=== PATIENT | male | born 1940 | race Caucasian/White ===

== ENCOUNTER 2020-07-24 16:39 | Observation (INO) | payer MEDICARE, OTHER, SELFPAY ==
[2020-07-24] VITALS (15 sets, daily range): BP systolic 134–160; BP diastolic 76–95; PULSE 72–100; RESP 12–24; TEMP 36–36.4; O2SAT 95–97; BMI 31.7
--- NOTE | 2020-07-24 17:28 | DI.RAD.S_ITS ---
PROCEDURE: XR CHEST 2V INDICATIONS: exertional shortness of breath for 1 month TECHNIQUE: 2 views of the chest were acquired. COMPARISON: [facility], CT, CT HEAD/BRAIN WO CON, 07/24/2020, 18:35. FINDINGS: Surgical changes and devices: None. Lungs and pleura: An incomplete inspiratory result is noted, causing a crowded appearance to the lung markings. No focal infiltrates are seen. No large pneumothorax or significant pleural effusions are seen. Generalized interstitial prominence is seen. No radha, focal infiltrates can be seen. Mediastinum: Mediastinal contours are normal. Heart size is normal. Bones and chest wall: No suspicious bony abnormalities. Age-appropriate bony degenerative changes are seen. Soft tissues appear unremarkable. IMPRESSION: Interstitial prominence is seen throughout. The interstitial prominence is nonspecific, yet may be related to pulmonary edema. Low lung volumes. Dictated by: Naresh Recinos M.D. on 07/24/2020 at 17:00 Approved by: Naresh Recinos M.D. on 07/24/2020 at 17:01
--- NOTE | 2020-07-24 17:31 | ED_ITS ---
HPI - SOB/Dyspnea <IMANI WisdomP - Last Filed: 07/24/20 20:54> General Chief Complaint: Shortness of Breath/Dyspnea Stated Complaint: SOB, dizziness Time Seen by Provider: 07/24/20 17:08 Source: patient and family Mode of arrival: Ambulatory Limitations: no limitations History of Present Illness HPI Narrative: This is a 79-year-old male, nonsmoker, with past medical history significant for hypertension, hyperlipidemia, chronic sinus infection presents to ED with chief complain of intermittent exertional short of breath 1 month and short duration of dizziness during driving. Patient denies spinning or vertigo like sensation but felt like passing out. 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 Patient denies chest pain, history of blood clots, prolonged bed rest, coughing, fever, nausea, vomiting, headache, sore throat, or diarrhea. Patient denies known exposure to Covid. Patient reports breathing difficulty has been progressively worst and he had another episode while walking [place] a hill at the garden. Patient denies speech difficulty, vision change, weakness to extremities. PCP Dr. Jackson in [place]. Related Data Home Medications Medication Instructions Recorded Confirmed atenolol 07/24/20 atorvastatin 07/24/20 atorvastatin [Lipitor] 10 mg PO BRUNO 07/24/20 07/24/20 losartan 07/24/20 Allergies Allergy/AdvReac Type Severity Reaction Status Date / Time Penicillins Allergy Verified 07/24/20 16:50 Review of Systems <KIRA Wisdom - Last Filed: 07/24/20 20:54> Review of Systems Narrative: General: Denies fever, chills, fatigue, malaise, sweats. HEENT: Denies sinus pain, ear pain, sore throat, difficulty swallowing, (+) dizziness. Respiratory: See HPI Cardiovascular: Denies chest pain, palpitations, orthopnea, edema. Gastrointestinal: Denies nausea, vomiting, abdominal pain, diarrhea, constipation, melena. : Denies dysuria, frequency, incontinence, hematuria, urinary retention. Musculoskeletal: Denies weakness, joint pain or bony pain. Skin: Denies rash, skin lesions, or other. Neurologic: Denies weakness, headache, numbness, change in speech, confusion, seizures, incoordination. Psychiatric: No concerning psychosocial issues. 12-point review of systems is negative except for those stated above. Patient History <KIRA Wisdom - Last Filed: 07/24/20 20:54> Medical History Hyperlipidemia (Acute) Hypertension (Acute) Surgical History History of hip replacement (Acute) History of phacoemulsification of cataract of both eyes with intraocular lens implantation (Acute) History of shoulder surgery (Acute) Family History Father Cardiac arrest Mother COPD (chronic obstructive pulmonary disease) Social History (Updated 07/24/20 @ 21:45 by KIRA Lopez) household members: spouse Smoking Status: Former smoker Tobacco: How many years used: 11 alcohol intake: current substance use type: does not use Type(s) of exercise: walking and independent ambulation frequency: daily duration: 15-30 minutes/day 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 Head: Normal cephalic, atraumatic. No scalp or temporal tenderness, palpable mass or rash. EYES: Pupils are equal, round, and reactive to light and accommodation. Extraocular muscles are intact bilaterally. There is no subconjunctival hemorrhage, exudate and sclera non-icteric. ENT: Hearing grossly intact. Airway patent. Neck: Trachea in midline. No JVD, non-tender without lymphadenopathy. No masses or thyroid megaly. Supple, non-tender and no meningeal signs. CARDIAC: Normal regular rate and rhythm without murmurs, gallops, or rubs. No chest wall tenderness. No peripheral edema, cyanosis or pallor. Capillary refill is less than 2 seconds. RESPIRATORY: Lungs are clear to auscultate bilaterally. No cough, wheezes, rales, or rhonchi. No stridor, respiratory distress, increase work of b reathing, or accessary muscle used. ABD: Abdomen soft, nontender and non-distended. No guarding or rebound tenderness to palpate. Bowel sounds are normal in all 4 quadrants. There is no palpable masses or organomegaly. EXT: Full painless ROM of all extremities with no loss of sensation, strength, effusion or edema. SKIN: Warm, dry, normal color for patient. No erythema, lesions or rash over visible areas. BACK: Nontender without deformity or crepitance. No flank tenderness. NEUROLOGICAL: Alert and oriented to place, time and person. Sensation and motor function intact bilaterally. No facial droops, dysphasia. PSYCHIATRIC: Good judgement and reason, without hallucinations, abnormal affect or abnormal behaviors during the examination. Patient is not suicidal. Initial Vital Signs Initial Vital Signs: Vital Signs Pulse Rate 100 H 07/24/20 16:46 Pulse Oximetry 96 07/24/20 16:46 <Saqib Booker DO - Last Filed: 07/25/20 00:44> Initial Vital Signs Initial Vital Signs: Vital Signs Pulse Rate 100 H 07/24/20 16:46 Pulse Oximetry 96 07/24/20 16:46 Scores <Kendell GreerKIRA Doshi - Last Filed: 07/24/20 20:54> GCS [place] coma scale eye opening: Spontaneous Micki coma scale verbal response: Orientated [place] coma scale motor response: Obey commands Micki coma scale total score: 15 HEART Score Heart Score history: Slightly Suspicious Heart Score EKG: Non-Specific repolarization disturbance Heart Score Age: > or = 65 years old Heart Score risk factors: 1-2 risk factors Heart Score troponin: 1-3 times normal limit Heart Score Total: 5 NIH Stroke Scale Level of Conciousness: Alert, keenly responsive Ask month/age: Answers both questions correctly. Open/close eyes, close hand: Performs both tasks correctly Best gaze horizontal: Normal Visual hatfield: No visual loss Facial palsy: Normal symetrical movement Left arm drift: No drift for full 10 sec Right arm drift: No drift for full 10 sec Left leg drift: No drift for full 5 sec Right leg drift: No drift for full 5 sec Limb ataxia: Absent Sensory on face/arms/legs: Normal, no sensory loss Best language: No aphasia, normal Dysarthria: Normal Extinction or inattention: No abnormality Total NIH Stroke scale score: 0 Course <Kendell Zoey-KIRA Mullen - Last Filed: 07/24/20 20:54> Orders Ordered: ED Orders 07/24/20 17:03 Complete Blood Count AUTO DIFF Stat Comprehensive Metabolic Panel Stat D Dimer Stat Magnesium Stat NT-proBNP (BNP-Adult 18+) Stat Prothrombin Time INR Stat Troponin & CK Cardiac Panel Stat 07/24/20 17:28 XR chest 2V Stat 07/24/20 17:29 CT head/brain wo con Stat 07/24/20 18:20 COVID19 -ED/INPAT/OR/L&D Stat 07/24/20 19:07 EKG-12 Lead Stat 07/24/20 19:10 Troponin I Stat Acetaminophen (Tylenol) 650 mg PO Q6HR PRN PRN Reason: Fever/Mild Pain (1-3) Atorvastatin Calcium (Lipitor) 40 mg PO BEDTIME [facility] Last Admin: 07/24/20 22:27 Dose: 10 mg Documented by: JOSÉ MIGUEL Enoxaparin Sodium (Lovenox) 40 mg SUBCUT DAILY [facility] Losartan Potassium (Cozaar) 50 mg PO BID [facility] Last Admin: 07/24/20 22:29 Dose: Not Given Documented by: JOSÉ MIGUEL Naloxone HCl (Narcan) 0.2 mg IV Q2MIN PRN PRN Reason: Opiate Reversal Ondansetron HCl (Zofran) 4 mg IV Q8HR PRN PRN Reason: Nausea And Vomiting Discontinued Medications Aspirin (Aspirin Chew) 324 mg PO NOW ONE Stop: 07/24/20 18:41 Last Admin: 07/24/20 18:46 Dose: 243 mg Documented by: LEONOR Furosemide (Lasix) 20 mg IV NOW ONE Stop: 07/24/20 21:21 Last Admin: 07/24/20 22:20 Dose: 20 mg Documented by: JOSÉ MIGUEL Influenza Virus Vaccine (Flu Hd Vaccine) 0.7 ml IM .ONCE ONE Stop: 07/24/20 21:37 Reevaluation(s) Reevaluation #1: Discussed the plan and recommendation from shearing supervisor and hospitalist with patient and he verbalized understanding. Patient was medicated with aspirin 243 mg (had one baby ASA this morning) and denies CP, sob or dizziness at this time. Waiting for 2nd troponin result Time: 19:39 Consultations Consultation #1: Consulted Dr. Garvey with EKG-ST depression on V3-V6 with el evated Trop of 0.043 and slightly elevated pro BNP of 738 and he recommended to consult shearing supervisor whether cardiac lien is required Time: 18:28 Consultation #2: Paged Dr. Mandujano and waiting for phone call. Time: 18:35 Consultation #3: Contacting [facility] to verify Dr. Mandujano telegraph office telephone clerk covering cadiology after no return call after 2nd page Time: 19:07 Additional Consultation(s): 1913-Dr. Mandujano call back and recommended trending Troponin and if elevated substantially then a transfer patient to [facility]. If troponin is stable at this time, patient can remain in [facility] with echocardiogram, stress test the following day. No further medication is required as long as patient does not have active chest pain. Dr. Mandujano thinks the EKG abnormality is due to LVH strain. Waiting for 2nd Troponin result and EKG repeated. 1947-Dr. Mandujano paged to inform Troponin elevation to 0.068 (slightly >50%) with again with ST depressions in anterolaeral leads. 2004-Dr. Mandujano paged again and waiting for phone call. 2024-Spoke with Dr. Mandujano after he was contacted by [facility] cooler supervisor. Informed Trop changes and EKG. He again recommended Cardiac enzyme trending, Stress test and Echocardiogram tomorrow. 2034-KIRA Fine, hospitalist kindly accepted the patient's care for further cardiac work for tomorrow and repeating cardiac enzymes. Vital Signs Vital signs: Vital Signs - 8 hr 07/24/20 16:46 07/24/20 16:50 07/24/20 17:00 Temperature 97.6 F Pulse Rate 100 H 90 80 Respiratory Rate 18 22 Blood Pressure 160/95 H 141/84 H Pulse Oximetry 96 97 97 07/24/20 17:30 07/24/20 17:47 07/24/20 18:00 Temperature Pulse Rate 80 81 79 Respiratory Rate 23 20 15 Blood Pressure 137/83 140/79 Pulse Oximetry 95 96 96 07/24/20 18:30 07/24/20 19:00 07/24/20 19:30 Temperature Pulse Rate 78 77 77 Respiratory Rate 23 12 16 Blood Pressure Pulse Oximetry 96 97 96 07/24/20 20:00 07/24/20 20:06 07/24/20 20:30 Temperature Pulse Rate 72 76 73 Respiratory Rate 16 19 15 Blood Pressure 140/84 134/76 Pulse Oximetry 97 96 96 <Saqib DO Jhony - Last Filed: 07/25/20 00:44> Orders Ordered: ED Orders 07/24/20 17:03 Complete Blood Count AUTO DIFF Stat Comprehensive Metabolic Panel Stat D Dimer Stat Magnesium Stat NT-proBNP (BNP-Adult 18+) Stat Prothrombin Time INR Stat Troponin & CK Cardiac Panel Stat 07/24/20 17:28 XR chest 2V Stat 07/24/20 17:29 CT head/brain wo con Stat 07/24/20 18:20 COVID19 -ED/INPAT/OR/L&D Stat 07/24/20 19:07 EKG-12 Lead Stat 07/24/20 19:10 Troponin I Stat Acetaminophen (Tylenol) 650 mg PO Q6HR PRN PRN Reason: Fever/Mild Pain (1-3) Atorvastatin Calcium (Lipitor) 40 mg PO BEDTIME [facility] Last Admin: 07/24/20 22:27 Dose: 10 mg Documented by: JOSÉ MIGUEL Enoxaparin Sodium (Lovenox) 40 mg SUBCUT DAILY [facility] Losartan Potassium (Cozaar) 50 mg PO BID [facility] Last Admin: 07/24/20 22:29 Dose: Not Given Documented by: JOSÉ MIGUEL Naloxone HCl (Narcan) 0.2 mg IV Q2MIN PRN PRN Reason: Opiate Reversal Ondansetron HCl (Zofran) 4 mg IV Q8HR PRN PRN Reason: Nausea And Vomiting Discontinued Medications Aspirin (Aspirin Chew) 324 mg PO NOW ONE Stop: 07/24/20 18:41 Last Admin: 07/24/20 18:46 Dose: 243 mg Documented by: LEONOR Furosemide (Lasix) 20 mg IV NOW ONE Stop: 07/24/20 21:21 Last Admin: 07/24/20 22:20 Dose: 20 mg Documented by: JOSÉ MIGUEL Influenza Virus Vaccine (Flu Hd Vaccine) 0.7 ml IM .ONCE ONE Stop: 07/24/20 21:37 Vital Signs Vital signs: Vital Signs - 8 hr 07/24/20 16:46 07/24/20 16:50 07/24/20 17:00 Temperature 97.6 F Pulse Rate 100 H 90 80 Respiratory Rate 18 22 Blood Pressure 160/95 H 141/84 H Pulse Oximetry 96 97 97 07/24/20 17:30 07/24/20 17:47 07/24/20 18:00 Temperature Pulse Rate 80 81 79 Respiratory Rate 23 20 15 Blood Pressure 137/83 140/79 Pulse Oximetry 95 96 96 07/24/20 18:30 07/24/20 19:00 07/24/20 19:30 Temperature Pulse Rate 78 77 77 Respiratory Rate 23 12 16 Blood Pressure Pulse Oximetry 96 97 96 07/24/20 20:00 07/24/20 20:06 07/24/20 20:30 Temperature Pulse Rate 72 76 73 Respiratory Rate 16 19 15 Blood Pressure 140/84 134/76 Pulse Oximetry 97 96 96 MDM - SOB/Dyspnea <Kendell GreerAndiSebasKIRA - Last Filed: 07/24/20 20:54> Differential Diagnosis Differential diagnosis: Likely congestive heart failure, community acquired pneumonia, pulmonary embolism and other (NSTEMI, Stroke, TIA) Medical Records Attestation: I reviewed the patient's medical records. Lab Data Attestation: I reviewed the patient's lab results. Result diagrams: 07/24/20 17:03 07/24/20 17:03 Labs: Lab Results 07/24/20 07/24/20 07/24/20 Range/Units 17:03 17:03 17:03 WBC 6.0 (4.5-11.0) X10^3/uL RBC 5.30 (4.5-5.9) X10^6/uL Hgb 16.8 (13.5-17.5) g/dL Hct 51.1 (41-53) % MCV 96.4 (80-100) fL MCH 31.7 (26-34) PG MCHC 32.9 (30-36) % RDW 14.9 H (11.6-14.8) % Plt Count 128 L (150-400) X10^3/uL Neut % (Auto) 59.3 (50-75) % Lymph % (Auto) 25.9 (25-40) % Sandoval % (Auto) 9.1 (3-14) % Eos % (Auto) 4.4 H (2-4) % Baso % (Auto) 1.3 (0-2) % Neut # (Auto) 3600 (2596-8311) /uL Lymph # (Auto) 1600 (6162-1221) /uL Sandoval # (Auto) 600 (0-900) /uL Eos # (Auto) 300 (0-450) /uL Baso # (Auto) 100 (0-100) /uL PT 11.8 (10.1-12.7) SECONDS INR 1.0 (0.9-1.3) D-Dimer 308 H (<230) ng/mL Sodium (137-145) mmol/L Potassium (3.4-5.1) mmol/L Chloride (98-107) mmol/L Carbon Dioxide (22-32) mmol/L BUN (9-20) mg/dL Creatinine (0.66-1.25) mg/dL Estimated GFR (>60) mL/min BUN/Creatinine Ratio (6-22) Glucose (80-110) mg/dL Hemoglobin A1c (4.0-6.0) % Calcium (8.4-10.2) mg/dL Magnesium 2.1 (1.6-2.3) mg/dL Total Bilirubin (0.2-1.3) mg/dL AST (17-59) IU/L ALT (<50) IU/L Alkaline Phosphatase (38-126) U/L Total Creatine Kinase 79 (55-170) U/L CK-MB (CK-2) TNP CK-MB (CK-2) Rel Index TNP Troponin I 0.043 H (0.01-0.034) ng/mL NT-Pro-B Natriuret Pep 738 H (<450) pg/mL Total Protein (6.3-8.2) g/dL Albumin (3.5-5.0) g/dL Globulin (1.7-4.1) g/dL Albumin/Globulin Ratio (1.0-2.8) COVID-19 PCR (Negative) 07/24/20 07/24/20 07/24/20 Range/Units 17:03 17:03 18:20 WBC (4.5-11.0) X10^3/uL RBC (4.5-5.9) X10^6/uL Hgb (13.5-17.5) g/dL Hct (41-53) % MCV (80-100) fL MCH (26-34) PG MCHC (30-36) % RDW (11.6-14.8) % Plt Count (150-400) X10^3/uL Neut % (Auto) (50-75) % Lymph % (Auto) (25-40) % Sandoval % (Auto) (3-14) % Eos % (Auto) (2-4) % Baso % (Auto) (0-2) % Neut # (Auto) (0397-1195) /uL Lymph # (Auto) (1910-5096) /uL Sandoval # (Auto) (0-900) /uL Eos # (Auto) (0-450) /uL Baso # (Auto) (0-100) /uL PT (10.1-12.7) SECONDS INR (0.9-1.3) D-Dimer (<230) ng/mL Sodium 140 (137-145) mmol/L Potassium 4.5 (3.4-5.1) mmol/L Chloride 107 (98-107) mmol/L Carbon Dioxide 28 (22-32) mmol/L BUN 24 H (9-20) mg/dL Creatinine 0.96 (0.66-1.25) mg/dL Estimated GFR > 60.0 (>60) mL/min BUN/Creatinine Ratio 25.0 H (6-22) Glucose 102 (80-110) mg/dL Hemoglobin A1c 5.9 (4.0-6.0) % Calcium 9.0 (8.4-10.2) mg/dL Magnesium (1.6-2.3) mg/dL Total Bilirubin 0.7 (0.2-1.3) mg/dL AST 29 (17-59) IU/L ALT 37 (<50) IU/L Alkaline Phosphatase 77 (38-126) U/L Total Creatine Kinase (55-170) U/L CK-MB (CK-2) CK-MB (CK-2) Rel Index Troponin I (0.01-0.034) ng/mL NT-Pro-B Natriuret Pep (<450) pg/mL Total Protein 7.1 (6.3-8.2) g/dL Albumin 4.1 (3.5-5.0) g/dL Globulin 3.0 (1.7-4.1) g/dL Albumin/Globulin Ratio 1.4 (1.0-2.8) COVID-19 PCR Negative (Negative) 07/24/20 Range/Units 19:10 WBC (4.5-11.0) X10^3/uL RBC (4.5-5.9) X10^6/uL Hgb (13.5-17.5) g/dL Hct (41-53) % MCV (80-100) fL MCH (26-34) PG MCHC (30-36) % RDW (11.6-14.8) % Plt Count (150-400) X10^3/uL Neut % (Auto) (50-75) % Lymph % (Auto) (25-40) % Sandoval % (Auto) (3-14) % Eos % (Auto) (2-4) % Baso % (Auto) (0-2) % Neut # (Auto) (3508-5345) /uL Lymph # (Auto) (3122-1246) /uL Sandoval # (Auto) (0-900) /uL Eos # (Auto) (0-450) /uL Baso # (Auto) (0-100) /uL PT (10.1-12.7) SECONDS INR (0.9-1.3) D-Dimer (<230) ng/mL Sodium (137-145) mmol/L Potassium (3.4-5.1) mmol/L Chloride (98-107) mmol/L Carbon Dioxide (22-32) mmol/L BUN (9-20) mg/dL Creatinine (0.66-1.25) mg/dL Estimated GFR (>60) mL/min BUN/Creatinine Ratio (6-22) Glucose (80-110) mg/dL Hemoglobin A1c (4.0-6.0) % Calcium (8.4-10.2) mg/dL Magnesium (1.6-2.3) mg/dL Total Bilirubin (0.2-1.3) mg/dL AST (17-59) IU/L ALT (<50) IU/L Alkaline Phosphatase (38-126) U/L Total Creatine Kinase (55-170) U/L CK-MB (CK-2) CK-MB (CK-2) Rel Index Troponin I 0.068 H (0.01-0.034) ng/mL NT-Pro-B Natriuret Pep (<450) pg/mL Total Protein (6.3-8.2) g/dL Albumin (3.5-5.0) g/dL Globulin (1.7-4.1) g/dL Albumin/Globulin Ratio (1.0-2.8) COVID-19 PCR (Negative) Urine Dip Bedside Urine Glucose Negative Bedside Urine Bilirubin - Negative Bedside Urine Ketone - Negative Urine Specific [place] 1.030 Bedside Urine Occult Blood - Negative Bedside Urine pH 6 Bedside Urine Protein - Negative Bedside Urine Urobilinogen - Negative Bedside Urine Nitrite - Negative Bedside Urine Leukocytes - Negative Esterase Imaging Data Chest x-ray: Radiologist's Impression: [address] [id number] XRay Report Signed Patient: Irineo Weiss AlexanderR#: [id number] : [id number]:[id number] Age/Sex: 79 / MDate of Service: 07/24/20 Loc: ED Accession Number: [id number] Procedure: XR chest 2V Ordering Provider: Kendell Perez PROCEDURE: XR CHEST 2V INDICATIONS: exertional shortness of breath for 1 month TECHNIQUE: 2 views of the chest were acquired. COMPARISON: [facility], CT, CT HEAD/BRAIN WO CON, 07/24/2020, 18:35. FINDINGS: Surgical changes and devices: None. Lungs and pleura: An incomplete inspiratory result is noted, causing a crowded appearance to the lung markings. No focal infiltrates are seen. No large pneumothorax or significant pleural effusions are seen. Generalized interstitial prominence is seen. No radha, focal infiltrates can be seen. Mediastinum: Mediastinal contours are normal. Heart size is normal. Bones and chest wall: No suspicious bony abnormalities. Age-appropriate bony degenerative changes are seen. Soft tissues appear unremarkable. IMPRESSION: Interstitial prominence is seen throughout. The interstitial pro minence is nonspecific, yet may be related to pulmonary edema. Low lung volumes. Dictated by: Naresh Recinos M.D. on 07/24/2020 at 17:00 Approved by: Naresh Recinos M.D. on 07/24/2020 at 17:01 CT scan - head: Radiologist's Impression: [address] [address] [address] Scan Report Signed Patient: Irineo Weiss AlexanderR#: [id number] : [id number]:[id number] Age/Sex: 79 / MDate of Service: 07/24/20 Loc: ED Accession Number: [id number] Procedure: CT head/brain wo con Ordering Provider: Kendell Perez PROCEDURE: CT HEAD/BRAIN WO CON INDICATIONS: a short duration of dizziness TECHNIQUE: Noncontrast 4.5 mm thick angled axial sections acquired from the foramen magnum to the vertex, with coronal and sagittal reformats. For radiation dose reduction, the following was used: automated exposure control, adjustment of mA and/or kV according to patient size. COMPARISON: [facility], CR, XR CHEST 2V, 07/24/2020, 17:23. FINDINGS: Image quality: Excellent. CSF spaces: Basal cisterns are patent. No extra-axial fluid collections. The ventricles are symmetric in size and shape. Brain: No intracranial bleeds or masses. There is cerebral volume loss for age, with resultant ventricular and sulcal prominence. There are periventricular and deep white matter chronic small vessel ischemic changes. There is intracranial internal carotid artery atherosclerosis. Skull and face: Calvarium and visualized facial bones appear intact, without suspicious lesions. Sinuses: Visualized sinuses and mastoids are clear. IMPRESSION: Unremarkable intracranial study for age, with note made of brain parenchymal volume loss and chronic small vessel ischemic change. If it would be helpful for clinical management decision making in this patient with a presenting history of dizziness, please consider a dedicated, scheduled IAC protocol MRI (without and with contrast) for further evaluation (assuming that there is no contraindication). Dictated by: Naresh Recinos M.D. on 07/24/2020 at 17:03 Approved by: Naresh Recinos M.D. on 07/24/2020 at 17:04 ECG Data Attestation: I personally reviewed and interpreted this ECG as follows: Prior ECG tracings: not available for review Interpretation: #1 EKG Sinus rhythm rate at 86. DE interval 158, QRS duration 100, QT/QTC 389/432. Left atrial enlargement. Enlarged QRS in V2-V4. ST depression in V3-V6. II, aVF, inverted T in III. #2 EKG Sinus rhythm rate at 78. Left atrial enlargement and QRS enlargement in V2-V4. DE interval for 161, QRS duration 102, QT/QTC 398/431 ST depression in V3-V6, II, aVF with T inversion in III. MDM Narrative Medical decision making narrative: This is a 79-year-old male with medical history significant for hypertension and hyperlipidemia presents to ED with exertion or short of breath for 1 month which has been progressively worsen. Spouse states she could hear labored breathing with walking up a mild hill and today he had a brief episode of non-vertigo like dizziness during driving. Patient denies having a cardiac workup done in the past. NIHSS score is 0. [address] depression in V2-V4 with elevated Troponin #1 0.043 and 2 hour post #2 at 0.068 with proBNP of 738. Infiltrates but generalize interstitial p rominence appreciated. Lung sounds are clear to auscultate in all lobes. Room oxygen O2 said is from 96-97% without tachypnea. Patient denies chest pain, dizziness, or dyspnea at rest. D dimer was negative for the age. Consulted Dr. Garvey (hospitalist) and Dr. Mandujano (shearing supervisor) and rec ommended further cardiac workup with stress test and echocardiogram at [facility] if Troponin is not potentially elevated and patient has no symptoms. KIRA Fine (night hospitalist) this patient's care under observation. <Saqib Booker, DO - Last Filed: 07/25/20 00:44> Lab Data Labs: Lab Results 07/24/20 07/24/20 07/24/20 Range/Units 17:03 17:03 17:03 WBC 6.0 (4.5-11.0) X10^3/uL RBC 5.30 (4.5-5.9) X10^6/uL Hgb 16.8 (13.5-17.5) g/dL Hct 51.1 (41-53) % MCV 96.4 (80-100) fL MCH 31.7 (26-34) PG MCHC 32.9 (30-36) % RDW 14.9 H (11.6-14.8) % Plt Count 128 L (150-400) X10^3/uL Neut % (Auto) 59.3 (50-75) % Lymph % (Auto) 25.9 (25-40) % Sandoval % (Auto) 9.1 (3-14) % Eos % (Auto) 4.4 H (2-4) % Baso % (Auto) 1.3 (0-2) % Neut # (Auto) 3600 (8119-1243) /uL Lymph # (Auto) 1600 (8002-3549) /uL Sandoval # (Auto) 600 (0-900) /uL Eos # (Auto) 300 (0-450) /uL Baso # (Auto) 100 (0-100) /uL PT 11.8 (10.1-12.7) SECONDS INR 1.0 (0.9-1.3) D-Dimer 308 H (<230) ng/mL Sodium (137-145) mmol/L Potassium (3.4-5.1) mmol/L Chloride (98-107) mmol/L Carbon Dioxide (22-32) mmol/L BUN (9-20) mg/dL Creatinine (0.66-1.25) mg/dL Estimated GFR (>60) mL/min BUN/Creatinine Ratio (6-22) Glucose (80-110) mg/dL Hemoglobin A1c (4.0-6.0) % Calcium (8.4-10.2) mg/dL Magnesium 2.1 (1.6-2.3) mg/dL Total Bilirubin (0.2-1.3) mg/dL AST (17-59) IU/L ALT (<50) IU/L Alkaline Phosphatase (38-126) U/L Total Creatine Kinase 79 (55-170) U/L CK-MB (CK-2) TNP CK-MB (CK-2) Rel Index TNP Troponin I 0.043 H (0.01-0.034) ng/mL NT-Pro-B Natriuret Pep 738 H (<450) pg/mL Total Protein (6.3-8.2) g/dL Albumin (3.5-5.0) g/dL Globulin (1.7-4.1) g/dL Albumin/Globulin Ratio (1.0-2.8) COVID-19 PCR (Negative) 07/24/20 07/24/20 07/24/20 Range/Units 17:03 17:03 18:20 WBC (4.5-11.0) X10^3/uL RBC (4.5-5.9) X10^6/uL Hgb (13.5-17.5) g/dL Hct (41-53) % MCV (80-100) fL MCH (26-34) PG MCHC (30-36) % RDW (11.6-14.8) % Plt Count (150-400) X10^3/uL Neut % (Auto) (50-75) % Lymph % (Auto) (25-40) % Sandoval % (Auto) (3-14) % Eos % (Auto) (2-4) % Baso % (Auto) (0-2) % Neut # (Auto) (0211-7234) /uL Lymph # (Auto) (6332-0305) /uL Sandoval # (Auto) (0-900) /uL Eos # (Auto) (0-450) /uL Baso # (Auto) (0-100) /uL PT (10.1-12.7) SECONDS INR (0.9-1.3) D-Dimer (<230) ng/mL Sodium 140 (137-145) mmol/L Potassium 4.5 (3.4-5.1) mmol/L Chloride 107 (98-107) mmol/L Carbon Dioxide 28 (22-32) mmol/L BUN 24 H (9-20) mg/dL Creatinine 0.96 (0.66-1.25) mg/dL Estimated GFR > 60.0 (>60) mL/min BUN/Creatinine Ratio 25.0 H (6-22) Glucose 102 (80-110) mg/dL Hemoglobin A1c 5.9 (4.0-6.0) % Calcium 9.0 (8.4-10.2) mg/dL Magnesium (1.6-2.3) mg/dL Total Bilirubin 0.7 (0.2-1.3) mg/dL AST 29 (17-59) IU/L ALT 37 (<50) IU/L Alkaline Phosphatase 77 (38-126) U/L Total Creatine Kinase (55-170) U/L CK-MB (CK-2) CK-MB (CK-2) Rel Index Troponin I (0.01-0.034) ng/mL NT-Pro-B Natriuret Pep (<450) pg/mL Total Protein 7.1 (6.3-8.2) g/dL Albumin 4.1 (3.5-5.0) g/dL Globulin 3.0 (1.7-4.1) g/dL Albumin/Globulin Ratio 1.4 (1.0-2.8) COVID-19 PCR Negative (Negative) 07/24/20 Range/Units 19:10 WBC (4.5-11.0) X10^3/uL RBC (4.5-5.9) X10^6/uL Hgb (13.5-17.5) g/dL Hct (41-53) % MCV (80-100) fL MCH (26-34) PG MCHC (30-36) % RDW (11.6-14.8) % Plt Count (150-400) X10^3/uL Neut % (Auto) (50-75) % Lymph % (Auto) (25-40) % [place] % (Auto) (3-14) % Eos % (Auto) (2-4) % Baso % (Auto) (0-2) % Neut # (Auto) (4714-4207) /uL Lymph # (Auto) (9119-9603) /uL [place] # (Auto) (0-900) /uL Eos # (Auto) (0-450) /uL Baso # (Auto) (0-100) /uL PT (10.1-12.7) SECONDS INR (0.9-1.3) D-Dimer (<230) ng/mL Sodium (137-145) mmol/L Potassium (3.4-5.1) mmol/L Chloride (98-107) mmol/L Carbon Dioxide (22-32) mmol/L BUN (9-20) mg/dL Creatinine (0.66-1.25) mg/dL Estimated GFR (>60) mL/min BUN/Creatinine Ratio (6-22) Glucose (80-110) mg/dL Hemoglobin A1c (4.0-6.0) % Calcium (8.4-10.2) mg/dL Magnesium (1.6-2.3) mg/dL Total Bilirubin (0.2-1.3) mg/dL AST (17-59) IU/L ALT (<50) IU/L Alkaline Phosphatase (38-126) U/L Total Creatine Kinase (55-170) U/L CK-MB (CK-2) CK-MB (CK-2) Rel Index Troponin I 0.068 H (0.01-0.034) ng/mL NT-Pro-B Natriuret Pep (<450) pg/mL Total Protein (6.3-8.2) g/dL Albumin (3.5-5.0) g/dL Globulin (1.7-4.1) g/dL Albumin/Globulin Ratio (1.0-2.8) COVID-19 PCR (Negative) Urine Dip Bedside Urine Glucose Negative Bedside Urine Bilirubin - Negative Bedside Urine Ketone - Negative Urine Specific [place] 1.030 Bedside Urine Occult Blood - Negative Bedside Urine pH 6 Bedside Urine Protein - Negative Bedside Urine Urobilinogen - Negative Bedside Urine Nitrite - Negative Bedside Urine Leukocytes - Negative Esterase Discharge Plan Departure Patient Disposition: Admitted as Observation Clinical Impression: Exertional dyspnea, Elevated troponin, ST segment changes on electrocardiogram Discharge Date/Time: 07/24/20 21:12 Admit Date/Time: 07/24/20 20:59 Admit Provider: Cornelia Fine <Saqib Booker, - Last Filed: 07/25/20 00:44> Cosign ED Attending Cosignature Attestation: Dr Booker Co-Sign Statement: I was available for consultation during this patient's emergency department visit. This chart is signed by myself for administrative purposes only. I did not have direct contact with this patient during this visit. They were seen independently by the APC.
[2020-07-24 17:40] LABS: Add Manual Diff / Slide Review NO; Basophils Absolute Auto 100 /uL (0-100); Basophils Percent Auto 1.3 % (0-2); Eosinophils Absolute Auto 300 /uL (0-450); Eosinophils Percent Auto 4.4 % (2-4); Hematocrit 51.1 % (41-53); Hemoglobin 16.8 g/dL (13.5-17.5); Lymphocytes Absolute Auto 1600 /uL (1100-4500); Lymphocytes Percent Auto 25.9 % (25-40); Mean Corpuscular HGB Conc 32.9 % (30-36); Mean Corpuscular Hemoglobin 31.7 PG (26-34); Mean Corpuscular Volume 96.4 fL (80-100); Monocytes Absolute Auto 600 /uL (0-900); Monocytes Percent Auto 9.1 % (3-14); Neutrophils Absolute Auto 3600 /uL (1500-7000); Neutrophils Percent Auto 59.3 % (50-75); Platelet Count 128 X10^3/uL (150-400); Red Cell Distribution Width 14.9 % (11.6-14.8)
[2020-07-24 17:48] LABS: Prothrombin Time 11.8 SECONDS (10.1-12.7)
[2020-07-24 17:50] LABS: Alanine Aminotransferase 37 IU/L (<50); Albumin 4.1 g/dL (3.5-5.0); Albumin Globulin Ratio 1.4 (1.0-2.8); Alkaline Phosphatase 77 U/L (38-126); Aspartate Aminotransferase 29 IU/L (17-59); Bilirubin Total 0.7 mg/dL (0.2-1.3); Blood Urea Nitrogen 24 mg/dL (9-20); Carbon Dioxide 28 mmol/L (22-32); Chloride 107 mmol/L (98-107); Creatine Kinase 79 U/L (55-170); Estimated Glomerular Filt Rate > 60.0 mL/min (>60); Glucose 102 mg/dL (80-110); HEMOLYSIS < 15 (0-50); Magnesium 2.1 mg/dL (1.6-2.3); Potassium 4.5 mmol/L (3.4-5.1); Sodium 140 mmol/L (137-145); Total Protein 7.1 g/dL (6.3-8.2)
[2020-07-24 17:57] LABS: D Dimer 308 ng/mL (<230)
[2020-07-24 18:02] LABS: NT-proBNP (BNP-Adult 18+) 738 pg/mL (<450); Troponin I 0.043 ng/mL (0.01-0.034)
[2020-07-24 18:42] LABS: COVID19 -Nasal RAPID Negative (Negative)
[2020-07-24] MEDS: ASPIRIN 81 MG CHEW TAB 324 MG PO (18:46)
[2020-07-24 19:41] LABS: Troponin I 0.068 ng/mL (0.01-0.034)
--- NOTE | 2020-07-24 21:07 | PC.NURSE ---
Report given to DENISE Ocampo on AC
--- NOTE | 2020-07-24 21:25 | P.HP_ITS ---
History of Present Illness History of Present Illness Date Patient Seen: 07/24/20 Time Patient Seen: 21:41 Chief complaint: SOB, dizziness Narrative: Irineo Sethi is a 79 y.o. non-smoking male with hypertension and hyperlipidemia was in his usual state of health with a complaint of exertional dyspnea for the past month. It became worsened today after hiking around the [facility] where he found he was more short of breath than usual. At 11 am, he had a light snack consisting of a chicken finger and a coconut macaroon. He and his left around 3 pm and was driving to having a late lunch at a restaraunt nearby, when he experienced dizziness. He stayed on the road until he could pull off to the side and had his take over. They live in [facility] and stopped by the ED to have him checked out. He denies headache or visual hanges, ear pain, does endorse chronic post-nasal drip and a cough, denied chest pain, nausea or vomiting, abdominal pain, dysuria, diarrhea or constipation or peripheral neuropathy. He described the dizziness as mild, but not head spinning and said it was inside my head. l In the ED, the head CT was negative for any acute cranial event, chest xray concerning for interstitial prominance...pulmonary edema. Patient is afebrile, blood pressure 141/84 though his systolic was only 160s when he initially presented to the emergency department, heart rate 88, respiratory rate 17, oxygen saturation 97% on room air, he weighs 97.5 kg with a BMI of 31.7. Troponin is concerning with an initial value of 0.043 and increased to 0.068 2 hours later, pro-BNP was slightly elevated at 738, CBC largely within normal limits except for low platelet count of 128. Age adjusted D-dimer was normal, BUN mildly elevated with a normal creatinine. A1c indicates pre-diabetes at 5.9%. Fasting lipid panel is pending for the am. Per the ED provider, she spoke to the on-call picker and sorter load and unload regarding his rising troponins and relayed the EKG findings of some ST depressions. He indicated he thought the patient had left ventricular hypertrophy and recommended keeping the patient for observation, and having an echo and a stress test in the morning. Patient History Medical History Hyperlipidemia (Acute) Hypertension (Acute) Surgical History History of hip replacement (Acute) History of phacoemulsification of cataract of both eyes with intraocular lens implantation (Acute) History of shoulder surgery (Acute) Family & Social History Family History Father Cardiac arrest Mother COPD (chronic obstructive pulmonary disease) Safety & Behavioral: Feels Safe in Current Yes Environment Been Physically Hurt or No Threatened By a Person Tobacco & Substance use: Smoking Status Former smoker alcohol intake current alcohol intake frequency 1 drink of Hari Scott on ice per day Substance Use Type does not use Meds Home Medications and Allergies Home Medications Medication Instructions Recorded Confirmed Type atenolol 07/24/20 History atorvastatin 07/24/20 History losartan 07/24/20 History Allergies Allergy/AdvReac Type Severity Reaction Status Date / Time Penicillins Allergy Verified 07/24/20 16:50 Review of Systems Review of Systems ROS: Yes All systems reviewed with the patient and are negative except as otherwise documented Exam Vital Signs (past 8 hours): - 07/24/20 16:46 07/24/20 16:50 07/24/20 17:00 Temperature 97.6 F Pulse Rate 100 H 90 80 Respiratory Rate 18 22 Blood Pressure 160/95 H 141/84 H Pulse Oximetry 96 97 97 07/24/20 17:30 07/24/20 17:47 07/24/20 18:00 Temperature Pulse Rate 80 81 79 Respiratory Rate 23 20 15 Blood Pressure 137/83 140/79 Pulse Oximetry 95 96 96 07/24/20 18:30 07/24/20 19:00 07/24/20 19:30 Temperature Pulse Rate 78 77 77 Respiratory Rate 23 12 16 Blood Pressure Pulse Oximetry 96 97 96 07/24/20 20:00 07/24/20 20:06 07/24/20 20:30 Temperature Pulse Rate 72 76 73 Respiratory Rate 16 19 15 Blood Pressure 140/84 134/76 Pulse Oximetry 97 96 96 07/24/20 21:00 Temperature Pulse Rate 82 Respiratory Rate 24 Blood Pressure 150/81 H Pulse Oximetry 96 Oxygen Delivery Method Room Air Narrative Exam Narrative: Gen: Alert, oriented, well-developed 79 y.o. male, appears younger than stated age HEENT: normocephalic, atraumatic, conjunctiva clear, sclera non-icteric, oral mucosa pink and moist Neck: supple, full ROM, no JVD, trachea is midline Resp: Lungs CTA, non-labored breathing CV: RRR, no murmur or rubs Abd: soft, non-tender, normoactive BTs Skin: no lesions or rashes, dry and intact Neuro: Alert and oriented X 4 w/no focal deficits. Speech clear and coherent. Extremities: trace bilateral LE edema, moves all 4 extremities, is ambulatory, negative Christina?s sign Psyche: normal mood and affect. Objective Labs Result Diagrams: 07/24/20 17:03 07/24/20 17:03 Labs: Laboratory Results - last 24 hr 07/24/20 07/24/20 07/24/20 17:03 17:03 17:03 WBC 6.0 RBC 5.30 Hgb 16.8 Hct 51.1 MCV 96.4 MCH 31.7 MCHC 32.9 RDW 14.9 H Plt Count 128 L Neut % (Auto) 59.3 Lymph % (Auto) 25.9 [place] % (Auto) 9.1 Eos % (Auto) 4.4 H Baso % (Auto) 1.3 Neut # (Auto) 3600 Lymph # (Auto) 1600 [place] # (Auto) 600 Eos # (Auto) 300 Baso # (Auto) 100 PT 11.8 INR 1.0 D-Dimer 308 H Sodium Potassium Chloride Carbon Dioxide BUN Creatinine Estimated GFR BUN/Creatinine Ratio Glucose Calcium Magnesium 2.1 Total Bilirubin AST ALT Alkaline Phosphatase Total Creatine Kinase 79 CK-MB (CK-2) TNP CK-MB (CK-2) Rel Index TNP Troponin I 0.043 H NT-Pro-B Natriuret Pep 738 H Total Protein Albumin Globulin Albumin/Globulin Ratio COVID-19 PCR 07/24/20 07/24/20 07/24/20 17:03 18:20 19:10 WBC RBC Hgb Hct MCV MCH MCHC RDW Plt Count Neut % (Auto) Lymph % (Auto) [place] % (Auto) Eos % (Auto) Baso % (Auto) Neut # (Auto) Lymph # (Auto) [place] # (Auto) Eos # (Auto) Baso # (Auto) PT INR D-Dimer Sodium 140 Potassium 4.5 Chloride 107 Carbon Dioxide 28 BUN 24 H Creatinine 0.96 Estimated GFR > 60.0 BUN/Creatinine Ratio 25.0 H Glucose 102 Calcium 9.0 Magnesium Total Bilirubin 0.7 AST 29 ALT 37 Alkaline Phosphatase 77 Total Creatine Kinase CK-MB (CK-2) CK-MB (CK-2) Rel Index Troponin I 0.068 H NT-Pro-B Natriuret Pep Total Protein 7.1 Albumin 4.1 Globulin 3.0 Albumin/Globulin Ratio 1.4 COVID-19 PCR Negative Assessment & Plan Assessment & Plan narrative: Irineo Weiss will be observed overnight for further evaluation of exertional dyspnea and suspected LVH. Elevated troponin, acute and present on admission -not suspected to be associated with renal dysfunction -I have ordered a 2300 troponin to obtain a 6 hour reading from the initial troponin that was ordered. If it doubles in value, will contact cardiology again -cardiac telemetry -echocardiogram and pharmacological stress test tomorrow New diagnosis of suspected heart failure -to be confirmed by echo -I have given him a one time dose of IV lasix 20 mg Hypertension, suboptimally controlled, present on admission -He will be continued on losartan 50 mg po bid -holding atenolol until he has had his stress test Hyperlipidemia, chronic -Lipid panel in the am -Continue home dose of atorvastatin 40 mg po at bedtime and received a dose tonight Risk stratification -A1c indicative of pre-diabetes at 5.9% -Patient should be counseled on heart healthy dietary eating VTE prophylaxis: Wells risk score: 0 Enoxaparin 40 mg subQ daily Consults: none Patient is observation status as his stay is not likely to exceed 2 midnights. FEN: saline lock, heart healthy, no caffeine or chocolate, CMP and magnesium in the am. Dispo: probable discharge to home with outpatient cardiology follow-up Code Status: full code as discussed with patient COVID-19 COVID-19 status: Negative Result date/Date tested (Pos, Neg/Pending): 07/24/20 Scores Wells' Criteria for PE Clinical signs and symptoms of DVT: No PE is #1 Dx or equally likely: No Heart rate > 100: No Immobilization at least 3 days or surg in previous 4 weeks: No History of PE or DVT: No Hemoptysis: No Malignancy w/Treatment within 6 months or palliative: No Wells' PE Score total: 0
[2020-07-24 21:37] LABS: Hemoglobin A1C% w Est Avg Glu 5.9 % (4.0-6.0)
[2020-07-24] MEDS: FUROSEMIDE 20 MG/2 ML VIAL IV (22:20)
[2020-07-24] MEDS: ATORVASTATIN 20 MG TABLET 40 MG PO (22:27)
--- NOTE | 2020-07-24 22:50 | PC.NURSE ---
Pt arrived from ED @ 2119 Alert/oriented, independent in room. Lungs clear, Tele placed, showing NSR w/depressed ST segment. Per ICU staff. HL LFA intact/patent. Lasix given as per orders. Pt states he takes 10 mg atorvastatin Q HS. states he cuts a 40mg pill into quarters. Pt oriented to room & call system, Call light w/in reach, pt calls appropriately for needs. Continue w/plan of care.
[2020-07-24 23:38] LABS: Troponin I 0.101 ng/mL (0.01-0.034)
[2020-07-25] VITALS: BP 124/74; PULSE 81; RESP 18; TEMP 36.4; O2SAT 95
--- NOTE | 2020-07-25 00:48 | PC.NURSE ---
Addendum entered by Lauren Licona R.N. 07/25/20 03:47: [employer] decided to transfer pt to [facility], This typewriter ribbon winder spoke to DENISE Wooten and gave report to her. Pt was notified of the transfer by hospitalist. Pt denies chest pain, shortness of breath, and pain. Cardiac Telemonitor was taken off, vital signs were obtained and was in the normal range. Pt belongings were placed in a bag and was taken with him. Pt has his cellphone on his person. discharged with Transport nurse and EMS Original Note: Pt awake upon entering the room, pt was given Lasix by Sera WALKER and pt states he has been going to the bathroom every ten minutes. Pt denies pain and dizziness at this time. Pt Troponin increased and current troponin is 0.101. This typewriter ribbon winder notified KIRA oLpez and received stat orders of EKG. EKG results was given to Cornelia Fine for review. pt denies chest pain or difficulty breathing at this time. Pt ambulates independently in his room. bed in the lowest position, call light within reach, will continue to monitor.
--- NOTE | 2020-07-25 02:31 | PM.DS.1 ---
History of Present Illness History of Present Illness Chief complaint: SOB, dizziness Narrative: Irineo Sethi is a 79 y.o. non-smoking male with hypertension and hyperlipidemia was in his usual state of health with a complaint of exertional dyspnea for the past month. It became worsened today after hiking around the [facility] where he found he was more short of breath than usual. At 11 am, he had a light snack consisting of a chicken finger and a coconut macaroon. He and his left around 3 pm and was driving to having a late lunch at a restaraunt nearby, when he experienced dizziness. He stayed on the road until he could pull off to the side and had his take over. They live in [facility] and stopped by the ED to have him checked out. He denies headache or visual hanges, ear pain, does endorse chronic post-nasal drip and a cough, denied chest pain, nausea or vomiting, abdominal pain, dysuria, diarrhea or constipation or peripheral neuropathy. He described the dizziness as mild, but not head spinning and said it was inside my head. l In the ED, the head CT was negative for any acute cranial event, chest xray concerning for interstitial prominance...pulmonary edema. Patient is afebrile, blood pressure 141/84 though his systolic was only 160s when he initially presented to the emergency department, heart rate 88, respiratory rate 17, oxygen saturation 97% on room air, he weighs 97.5 kg with a BMI of 31.7. Troponin is concerning with an initial value of 0.043 and increased to 0.068 2 hours later, pro-BNP was slightly elevated at 738, CBC largely within normal limits except for low platelet count of 128. Age adjusted D-dimer was normal, BUN mildly elevated with a normal creatinine. A1c indicates pre-diabetes at 5.9%. Fasting lipid panel is pending for the am. Per the ED provider, she spoke to the on-call copy center associate regarding his rising troponins and relayed the EKG findings of some ST depressions. He indicated he thought the patient had left ventricular hypertrophy and recommended keeping the patient for observation, and having an echo and a stress test in the morning. Discharge Providers Provider Date of admission: 07/24/20 20:59 Discharge Date: 07/25/20 Discharge provider: KIRA Lopez Summary Hospital Course Discharge Diagnosis: Suspected ACS Hospital Course: Patient was admitted under observation and serial troponins for exertional dyspnea, elevated troponins and an abnormal ECG. Patient's ECG was concerning for ST depressions in leads V3-V6. Patient's troponin continued to rise and doubled over a 6 hour period. Status at Discharge Cognitive/behavioral status at discharge: oriented Functional status at discharge: independent ambulation Overall status at discharge: patient is back to baseline Time Spent with Patient Time spent: Greater than 30 minutes Exam Vital Signs (past 8 hours): - 07/24/20 19:00 07/24/20 19:30 07/24/20 20:00 Temperature Pulse Rate 77 77 72 Respiratory Rate 12 16 16 Blood Pressure Pulse Oximetry 97 96 97 07/24/20 20:06 07/24/20 20:30 07/24/20 21:00 Temperature Pulse Rate 76 73 82 Respiratory Rate 19 15 24 Blood Pressure 140/84 134/76 150/81 H Pulse Oximetry 96 96 96 07/24/20 21:20 07/24/20 23:45 07/25/20 00:00 Temperature 96.8 F L 97.6 F Pulse Rate 88 81 Respiratory Rate 17 18 Blood Pressure 141/84 H 124/74 Pulse Oximetry 97 95 95 Oxygen Delivery Method Room Air Oxygen Flow Rate 0 Narrative Exam Narrative: See H and P Objective Labs Result Diagrams: 07/24/20 17:03 07/24/20 17:03 Labs: Laboratory Results - last 24 hr 07/24/20 07/24/20 07/24/20 17:03 17:03 17:03 WBC 6.0 RBC 5.30 Hgb 16.8 Hct 51.1 MCV 96.4 MCH 31.7 MCHC 32.9 RDW 14.9 H Plt Count 128 L Neut % (Auto) 59.3 Lymph % (Auto) 25.9 [place] % (Auto) 9.1 Eos % (Auto) 4.4 H Baso % (Auto) 1.3 Neut # (Auto) 3600 Lymph # (Auto) 1600 [place] # (Auto) 600 Eos # (Auto) 300 Baso # (Auto) 100 PT 11.8 INR 1.0 D-Dimer 308 H Sodium Potassium Chloride Carbon Dioxide BUN Creatinine Estimated GFR BUN/Creatinine Ratio Glucose Hemoglobin A1c Calcium Magnesium 2.1 Total Bilirubin AST ALT Alkaline Phosphatase Total Creatine Kinase 79 CK-MB (CK-2) TNP CK-MB (CK-2) Rel Index TNP Troponin I 0.043 H NT-Pro-B Natriuret Pep 738 H Total Protein Albumin Globulin Albumin/Globulin Ratio COVID-19 PCR 07/24/20 07/24/20 07/24/20 17:03 17:03 18:20 WBC RBC Hgb Hct MCV MCH MCHC RDW Plt Count Neut % (Auto) Lymph % (Auto) [place] % (Auto) Eos % (Auto) Baso % (Auto) Neut # (Auto) Lymph # (Auto) [place] # (Auto) Eos # (Auto) Baso # (Auto) PT INR D-Dimer Sodium 140 Potassium 4.5 Chloride 107 Carbon Dioxide 28 BUN 24 H Creatinine 0.96 Estimated GFR > 60.0 BUN/Creatinine Ratio 25.0 H Glucose 102 Hemoglobin A1c 5.9 Calcium 9.0 Magnesium Total Bilirubin 0.7 AST 29 ALT 37 Alkaline Phosphatase 77 Total Creatine Kinase CK-MB (CK-2) CK-MB (CK-2) Rel Index Troponin I NT-Pro-B Natriuret Pep Total Protein 7.1 Albumin 4.1 Globulin 3.0 Albumin/Globulin Ratio 1.4 COVID-19 PCR Negative 07/24/20 07/24/20 19:10 23:09 WBC RBC Hgb Hct MCV MCH MCHC RDW Plt Count Neut % (Auto) Lymph % (Auto) [place] % (Auto) Eos % (Auto) Baso % (Auto) Neut # (Auto) Lymph # (Auto) [place] # (Auto) Eos # (Auto) Baso # (Auto) PT INR D-Dimer Sodium Potassium Chloride Carbon Dioxide BUN Creatinine Estimated GFR BUN/Creatinine Ratio Glucose Hemoglobin A1c Calcium Magnesium Total Bilirubin AST ALT Alkaline Phosphatase Total Creatine Kinase CK-MB (CK-2) CK-MB (CK-2) Rel Index Troponin I 0.068 H 0.101 H NT-Pro-B Natriuret Pep Total Protein Albumin Globulin Albumin/Globulin Ratio COVID-19 PCR Discharge Assessment & Plan Assessment and Plan Assessment: Probable ACS Plan of Treatment: Transfer to tertiary facility for cardiac catheterization Discharge Plan Discharge Plan Disposition: Xfer Acute Care Hospital Discharge Data Attending Provider: Cornelia Fine Admit Date/Time: 07/24/20 20:59 Quality VTE Deep Vein Thrombosis/Pulmonary Embolism Present on Admission: No
[2020-07-25 03:52] VITALS: BP 139/86; PULSE 76; RESP 18; O2SAT 98
== END 2020-07-25 03:51 | disposition short-term general hospital (02) ==
LOC: ED 20:47 → AC 21:01
PROVIDERS: Admitting Provider Nurse Practitioner Family; Emergency Provider Nurse Practitioner Family; Family Provider Orthopaedic Surgery; Referring Provider Nurse Practitioner Family; Visit Provider Nurse Practitioner Family
DX: R94.31 Abnormal electrocardiogram [ECG] [EKG] (principal); R06.02 Shortness of breath; R42 Dizziness and giddiness; I10 Essential (primary) hypertension; E78.5 Hyperlipidemia, unspecified; R77.8 Other specified abnormalities of plasma proteins; Z11.59 Encounter for screening for other viral diseases
CPT/HCPCS: 36415; 70450; 71046; 80053; 81003; 82550; 83036; 83735; 83880; 84484; 85025; 85379; 85610; 87635; 93005; 96374; 99284; G0378; J1940

== ENCOUNTER → 2020-10-24 13:03 | Outpatient (CLI) | payer MEDICARE, OTHER, SELFPAY ==
[2020-07-24 21:27] VITALS: BMI 31.7
[2020-10-24 14:54] LABS: COVID19 -Nasal RAPID Negative (Negative)
== END ==
PROVIDERS: Family Provider Orthopaedic Surgery; Visit Provider Physician Assistant
DX: Z01.812 Encounter for preprocedural laboratory examination (principal); Z20.822 Contact with and (suspected) exposure to COVID-19
CPT/HCPCS: 87635; C9803

== ENCOUNTER 2021-01-12 14:00 | Outpatient (RCR) | payer MEDICARE, OTHER, SELFPAY ==
[2020-07-24 21:27] VITALS: BMI 31.7
== END 2021-01-12 16:00 ==
LOC: CAR 14:00
PROVIDERS: Family Provider Orthopaedic Surgery; PCP Internal Medicine; Referring Provider Thoracic Surgery (Cardiothoracic Vascular Surgery); Visit Provider Thoracic Surgery (Cardiothoracic Vascular Surgery)
DX: Z95.1 Presence of aortocoronary bypass graft (principal)
CPT/HCPCS: 93798